=== PATIENT | female | born 1975 | race Caucasian/White ===

== ENCOUNTER 2018-10-05 06:50 | Emergency (ER) | payer MEDICARE, MEDICAID ==
[~2018-10-05] VITALS: Ht 157.5 cm; Wt 73.2 kg
[~2018-10-05 06:50] MED LIST: ALBU8.5H8 INH; ALBU8HFA PO; HYDR-2514 PO; IBUP-1984 PO; NO HOME MEDS; OMEP20TA5 PO; PENI500T2 PO
[2018-10-05] MEDS ORDERED: LIDOcaine 1.5% w/epinephrine 1:200,000 5ml ampul IJ ONE (07:10)
[2018-10-05] MEDS ORDERED: ondansetron 4mg rapidly disintigrating tab PO ONE (07:10)
[2018-10-05] MEDS ORDERED: morphine 4 MG/ML inj SYRINge IM ONE (07:10)
[2018-10-05] MEDS ORDERED: LIDOcaine 1% w/epiNEPHrine 1:200,000 30ml vial IJ ONE (07:45)
[2018-10-05] MEDS ORDERED: ACET-3067 PO (08:35)
[2018-10-05] MEDS ORDERED: CLIN300C70 PO (08:36)
[2018-10-05 09:00] VITALS: BP 127/76
== END 2018-10-05 09:01 | disposition home or self-care (01) ==
LOC: ER 06:50
DX: L02.215 Cutaneous abscess of perineum (principal); I10 Essential (primary) hypertension; F12.90 Cannabis use, unspecified, uncomplicated; Z90.49 Acquired absence of other specified parts of digestive tract; Z90.710 Acquired absence of both cervix and uterus; Z88.6 Allergy status to analgesic agent; Z79.2 Long term (current) use of antibiotics; Z79.899 Other long term (current) drug therapy
CPT/HCPCS: 56405; 96372; 99284; J2270; J3490